=== PATIENT | male | born 1975 | race Two or more races ===

== ENCOUNTER 2024-04-03 16:50 | Emergency (ER) | payer BC ==
[~2024-04-03] VITALS: Ht 175.3 cm; Wt 90.7 kg
[2024-04-03] MEDS ORDERED: LIPITOR40 MG PO (17:15)
[2024-04-03] MEDS ORDERED: ZOLOFT50 MG PO (17:15)
[2024-04-03] MEDS ORDERED: HYDROGEN PEROXIDE 473 ML BOTTLE TOP ONE (17:21)
== END 2024-04-03 19:22 | disposition home or self-care (01) ==
LOC: ER 16:52
DX: S00.93XA Contusion of unspecified part of head, initial encounter (principal); V98.8XXA Other specified transport accidents, initial encounter; Y93.89 Activity, other specified; Y92.89 Other specified places as the place of occurrence of the external cause; Y99.9 Unspecified external cause status; M50.30 Other cervical disc degeneration, unspecified cervical region